=== PATIENT | female | born 1980 | race Caucasian/White ===

== ENCOUNTER 2022-04-26 13:10 | Observation (INO) | payer OTHER ==
[~2022-04-26] VITALS: Ht 152 cm; Wt 68.9 kg
[2022-04-26 13:00] VITALS: BP 104/68
== END 2022-04-26 20:00 | disposition home or self-care (01) ==
LOC: MLD 13:10
PROVIDERS: ADMIT Obstetrics & Gynecology; ATTEND Obstetrics & Gynecology
DX: O09.43 Supervision of pregnancy with grand multiparity, third trimester (principal); O62.9 Abnormality of forces of labor, unspecified; Z3A.34 34 weeks gestation of pregnancy
CPT/HCPCS: 76805; G0378; Q0092

== ENCOUNTER 2022-05-31 07:45 | Inpatient (IN) | payer OTHER ==
[~2022-05-31] VITALS: Ht 149 cm; Wt 80.7 kg
[2022-05-31 08:30] VITALS: BP 135/88
[2022-05-31] MEDS ORDERED: OXYTOCIN 10 UNITS/ML VIAL IM SCH (08:35)
[2022-05-31] MEDS ORDERED: CARBOPROST 250 MCG/ML AMP IM PRN (08:35)
[2022-05-31] MEDS ORDERED: LACTATED RINGERS 500 ML IV SCH (08:35)
[2022-05-31] MEDS ORDERED: METHYLERGONOVINE 0.2 MG/ML AMP IM PRN ×2 (08:35→18:40)
[2022-05-31] MEDS: LACTATED RINGERS 1,000 ML IV SCH ×2 (09:00→10:42)
[2022-05-31 09:14] LABS: BASOPHILS % (AUTO) 0.5 % (0.0-2.0); EOSINOPHILS % (AUTO) 0.3 % (0.0-4.0); HEMATOCRIT 34.8 % (36-48); HEMOGLOBIN 11.8 g/dL (12.0-16.0); LYMPHOCYTES # (AUTO) 1.3 K/uL (2.5-16.5); LYMPHOCYTES % (AUTO) 14.3 % (20.5-51.1); MEAN CORPUSCULAR HEMOGLOBIN 30 pg (27-31); MEAN CORPUSCULAR HGB CONC 34 g/dL (33-37); MEAN CORPUSCULAR VOLUME 88.3 fL (80-94); MONOCYTES # (AUTO) 0.7 K/uL (0.8-1.0); MONOCYTES % (AUTO) 7.9 % (1.7-9.3); NEUTROPHILS # (AUTO) 6.9 K/uL (1.8-7.7); PLATELET COUNT (AUTO) 220 K/uL (140-450); RED BLOOD CELL COUNT(AUTO) 3.94 MIL/uL (4.20-5.40); RED CELL DISTRIBUTION WIDTH 14.9 % (11.6-13.7)
[2022-05-31] MEDS ORDERED: MORPHINE SULFATE 5 MG/ML VIAL IVP PRN (09:20)
[2022-05-31] MEDS ORDERED: ONDANSETRON 4 MG/2 ML VIAL IVP PRN (09:20)
[2022-05-31] MEDS ORDERED: ONDANSETRON 4 MG/2 ML VIAL ONE (09:22)
[2022-05-31] MEDS ORDERED: MORPHINE SULFATE 10 MG/ML VIAL ONE (09:22)
[2022-05-31 09:25] LABS: PROTHROMBIN TIME 8.8 secs (10.8-13.4)
[2022-05-31 09:27] LABS: ALBUMIN 2.8 g/dL (3.4-5.0); ANION GAP 15.9 (8-16); CARBON DIOXIDE 19.8 mmol/L (21-32); CREATININE 0.9 mg/dL (0.6-1.3); POTASSIUM 3.7 mmol/L (3.5-5.1); TOTAL BILIRUBIN 0.3 mg/dL (0.0-1.0)
--- NOTE | 2022-05-31 09:51 | NUR ---
PATIENT HAS BEEN SCREENED AND CATEGORIZED LOW NUTRITION RISK. PATIENT WILL BE SEEN WITHIN 7 DAYS OF ADMISSION. 06/07/22 REVIEWED BY OTTO BLAN[address]
[2022-05-31] MEDS ORDERED: ROPIVACAINE 0.2%/NS PREMIX 200 ML EPI ONE (10:58)
[2022-05-31] MEDS ORDERED: fentaNYL citrate 0.05 MG/ML VIAL ONE (10:58)
[2022-05-31 11:50] LABS: APPEARANCE,URINE CLEAR (CLEAR); BILIRUBIN,URINE NEGATIVE (NEGATIVE); BLOOD, URINE 2+ (NEGATIVE); COLOR,URINE YELLOW (YELLOW); LEUKOCYTE ESTERASE ,URINE NEGATIVE (NEGATIVE); NITRITE, URINE NEGATIVE (NEGATIVE); UGLUCOSE NEGATIVE (NEGATIVE)
[2022-05-31 12:01] LABS: BARBITURATE, URINE NEGATIVE ng/ml (NEG <=200); BENZODIAZEPINE, URINE NEGATIVE ng/mL (NEG <=200); CANNABINOID, URINE NEGATIVE ng/mL (NEG <=50); COCAINE, URINE NEGATIVE ng/mL (NEG <=300); OPIATE, URINE POSITIVE ng/mL (NEG <=2000); PHENCYCLIDINE SCREEN,URINE NEGATIVE ng/mL (NEG <=25)
[2022-05-31 12:04] LABS: RBC,URINE 11-20 (MOD) /HPF (0-5); WBC,URINE 0-5 /HPF (0-5)
[2022-05-31] MEDS ORDERED: PNV91TAB8 PO (13:50)
[2022-05-31] MEDS ORDERED: OXYTOCIN 20 UNITS in LACTATED RINGERS 1,000 ML IV SCH (15:05)
[2022-05-31] MEDS ORDERED: OXYTOCIN 20 UNITS/LR PREMIX 1,000 ML IV ONE (15:09)
[2022-05-31] MEDS ORDERED: MISOPROSTOL 200 MCG TAB ONE (15:19)
[2022-05-31] MEDS ORDERED: METHYLERGONOVINE 0.2 MG TAB PO PRN (18:40)
[2022-05-31] MEDS ORDERED: OXYTOCIN 10 UNITS/ML VIAL IM PRN (18:40)
[2022-05-31] MEDS ORDERED: MEASLES, MUMPS, AND RUBELLA 1 VIAL SQVAC ONE (18:40)
[2022-05-31] MEDS ORDERED: BENZOCAINE/MENTHOL 20%-0.5% 60 GM CAN TP PRN (18:40)
[2022-05-31] MEDS ORDERED: oxyCODONE/APAP 5/325 MG 1 TAB TAB PO PRN (20:40)
[2022-05-31] MEDS: IBUPROFEN 800 MG TAB PO PRN (20:47)
[2022-06-01 05:49] LABS: HEMATOCRIT 31.8 % (36-48); HEMOGLOBIN 10.4 g/dL (12.0-16.0)
[2022-06-01] MEDS: IBUPROFEN 800 MG TAB PO PRN ×2 (08:41→17:29)
[2022-06-01 12:08] LABS: HEPATITIS B SURFACE ANTIGEN Negative (Negative)
[2022-06-02] MEDS ORDERED: IBUP-2217 PO (11:47)
--- NOTE | 2022-06-03 08:59 | NUR ---
DC PLANNING LATE ENTRY, PT SEEN 06/01 PT PRIMARILY WALLISIAN SPEAKING THEREFORE, TECHNICAL BUSINESS SYSTEMS ANALYST UTILIZED; [id number]/ TANNER MET WITH PT AT BEDSIDE TO PROVIDE PT WITH RESOURCES. ORDER RECEIVED STATING PT REQUIRES RESOURCES FOR FINANCIAL AND CAR SEAT. GAVI INQUIRED ON HOW SHE PLANS ON TAKING CARE OF BABY SHE REPORTS CURRENTLY NOT WORKING AT THIS TIME. PT REPORTS ADULT DAUGHTERS (4) ARE CURRENTLY AIDING IN PAYING FOR RENT AND ALL CURRENT NECESSITIES. PT REPORTS CURRENTLY RESIDING IN A GROUND FLOOR APT WITH HER CHILDREN. PT REPORTS CURRENTLY RECEIVING WIC BENEFITS, HOWEVER WAS WORRIED WIC ONLY PROVIDES TWO MONTHS OF FOOD/FORMULA AT A TIME. ENSURED PT LONG SHE IS IN COMPLIANCE WITH ALL REQUIRED DOCUMENTS NEEDED, WIC TYPICALLY PROVIDES 60DAYS OF RESOURCES. GAVI PROVIDED PT WITH [facility] OFFICE INFORMATION AND ENCOURAGED PT TO APPLY FOR [employer] BENEFITS. PT IN AGREEMENT AND REPORTS SHE WILL APPLY. PT INQUIRING ABOUT CAR SEAT, NOTIFIED PT HOSPITAL NO LONGER PROVIDES CAR SEATS HOWEVER, PROVIDED PT WITH RESOURCES THAT INCLUDED POLICE STATIONS THAT PROVIDE CARS SEATS WHEN AVAIL, ENCOURAGED PT TO CALL. PT RECEPTIVE AND REPORTS HAVING A CAR SEAT HOWEVER WAS REQUESTING A CARRIER CAR SEAT TO TRANSPORT BABY EASIER. GAVI INQUIRED ON ADDITIONAL RESOURCES NEEDED, PT DECLINED
== END 2022-06-02 14:25 | disposition home or self-care (01) | DRG 560 ==
LOC: MLD 07:45 → OBSVTOIN 09:17 → MFCC 19:00
PROVIDERS: ADMIT Obstetrics & Gynecology; ATTEND Obstetrics & Gynecology
PROC: 10D07Z6 Extraction of Products of Conception, Vacuum, Via Natural or Artificial Opening (ICD-10-PCS; principal; 2022-05-31)
PROC: 3E0R3BZ Introduction of Anesthetic Agent into Spinal Canal, Percutaneous Approach (ICD-10-PCS; 2022-05-31)
PROC: 00HU33Z Insertion of Infusion Device into Spinal Canal, Percutaneous Approach (ICD-10-PCS; 2022-05-31)
DX: O48.0 Post-term pregnancy (principal); Z37.0 Single live birth; D62 Acute posthemorrhagic anemia; O99.02 Anemia complicating childbirth; Z20.822 Contact with and (suspected) exposure to COVID-19; Z3A.40 40 weeks gestation of pregnancy
CPT/HCPCS: 36415; 51702; 59409; 76815; 80053; 80305; 81001; 85018; 85025; 85610; 85730; 86592; 86762; 86886; 86900; 86901; 87340; 90715; J2210; J2270; J2405; J2590; J2795; J3010; Q0092